=== PATIENT | male | born 1995 | race Asian ===

== ENCOUNTER 2018-02-04 12:31 | Emergency (ER) | payer OTHER, MEDICAID, SELFPAY ==
[2018-02-04 12:48] VITALS: PULSE 98; RESP 21; O2SAT 99
[2018-02-04] MEDS: ALBUTEROL/IPRATROPIUM 3 ML AMPUL INH ×2 (12:48→15:15)
--- NOTE | 2018-02-04 12:54 | ED.FEVER ---
HPI - Fever General Chief Complaint: Upper Respiratory Symptoms Stated Complaint: HIGH FEVER/ FLU LIKE SYMTOMS/ SOB Time Seen by Provider: 02/04/18 12:54 Source: patient Mode of arrival: ambulatory Limitations: no limitations History of Present Illness HPI Narrative: Patient is a 22-year-old male with a history of asthma who states that he only uses his albuterol inhaler maybe once a year. States that for the past 36-48 hours he has had a productive cough and subjective fevers and having to use his albuterol inhaler at home. He states that the albuterol does improve his symptoms but then they returned shortly afterwards. No recent travel. No chest pain. Related Data Home Medications Medication Instructions Recorded Confirmed albuterol sulfate [ProAir HFA] 1 puff INHALATION PRN PRN 02/04/18 02/04/18 Previous Rx's Medication Instructions Recorded albuterol sulfate 2.5 mg INHALATION Q4-6H PRN #75 ml 02/04/18 dexamethasone [Decadron] 12 mg PO .once #3 tab 02/04/18 Allergies Allergy/AdvReac Type Severity Reaction Status Date / Time No Known Drug Allergies Allergy Verified 02/04/18 14:08 Review of Systems Constitutional Reports chills and Reports fever(s) Cardiovascular Denies chest pain, Denies irregular heart rhythm, Denies palpitations and Reports dyspnea Respiratory Reports cough, Denies hemoptysis, Reports dyspnea and Reports wheezing Gastrointestinal Gastrointestinal: Denies abdominal pain, Denies diarrhea, Denies nausea and Denies vomiting Musculoskeletal Denies myalgias and Denies arthralgias Integumentary/Breasts Denies lesions and Denies rash Endocrine Denies palpitations Hematologic/Lymphatic Denies easy bleeding and Denies easy bruising Allergic/Immunologic Reports wheezing [facility] Medical History Asthma (Acute) Surgical History No pertinent past surgical history (Acute) Exam Initial Vital Signs Initial Vital Signs: Vital Signs Pulse Rate 98 H 02/04/18 12:48 Respiratory Rate 21 02/04/18 12:48 Pulse Oximetry 99 02/04/18 12:48 Const General: cooperative, healthy appearing, comfortable, well developed, well groomed and No acute distress Orientation: alert, awake and oriented x3 HENMT Head: normal to inspection and normocephalic Resp Effort & Inspection: not labored, no respiratory distress, tachypneic and no use of accessory muscles Auscultation: clear to auscultation bilaterally Other: My lung exam was performed after he received a nebulizer treatment here in the emergency department. He was reported by nursing staff and respiratory therapy that he had inspiratory and expiratory wheezing prior to the nebulizer treatment Cardio Rate: tachycardic Rhythm: regular rhythm Heart Sounds: no murmurs Pulses: radial pulses present Skin Lesions: no lesions Rashes: no rashes Neuro General: alert, awake and oriented x3 Extrem General: normal to inspection and capillary refill normal Psych Appearance: grossly normal and well kempt Course Orders Ordered: ED Orders 02/04/18 12:56 XR chest 1V Stat 02/04/18 13:20 Influenza A and B by PCR Rapid Stat Albuterol (Ventolin) 2.5 mg INH NOW PRN PRN Reason: Wheezing Last Admin: 02/04/18 13:00 Dose: 2.5 mg Admin: 02/04/18 12:59 Dose: 2.5 mg Discontinued Medications Albuterol/Ipratropium (Duoneb) 3 ml INH NOW ONE Stop: 02/04/18 12:47 Last Admin: 02/04/18 12:48 Dose: 3 ml Albuterol/Ipratropium (Duoneb) 3 ml INH NOW ONE Stop: 02/04/18 14:48 Last Admin: 02/04/18 15:15 Dose: 3 ml Dexamethasone (Decadron) 10 mg PO NOW ONE Stop: 02/04/18 13:49 Last Admin: 02/04/18 14:08 Dose: 10 mg Vital Signs - 8 hr 02/04/18 12:48 02/04/18 13:00 02/04/18 15:20 Temperature 99.9 F H Pulse Rate 98 H 98 H 110 H Respiratory Rate 21 21 16 Blood Pressure 144/84 H Pulse Oximetry 99 99 98 MDM - Fever Lab Data Attestation: I reviewed the patient's lab results. Lab Results 02/04/18 Range/Units 13:20 Influenza A & B (PCR) Negative (Negative) Imaging Data Chest x-ray: Radiologist's impression: [address] [address] XRay Report Signed Patient: Te Rodas [facility]#: [id number] : 1995Acct:[id number] Age/Sex: 22 / MDate of Service: 02/04/18 Loc: ED Accession Number: [id number] Procedure: XR chest 1V Ordering Provider: Abelino Whipple D.O. PROCEDURE: XR CHEST 1V INDICATIONS: Fever and cough TECHNIQUE: One view of the chest was acquired. COMPARISON: [facility], CHEST 1 VIEW, 11/20/2016, 17:38. [facility], , CHEST 2 VIEW, 08/23/2015, 20:26. FINDINGS: Surgical changes and devices: None. Lungs and pleura: No pleural effusions or pneumothorax. Lungs are clear. Mediastinum: Mediastinal contours appear normal. Heart size is normal. Bones and chest wall: No suspicious bony lesions. Overlying soft tissues appear unremarkable. IMPRESSION: Normal for age. Dictated by: Jacobo Lucio M.D. on 02/04/2018 at 13:22 Approved by: Jacobo Lucio M.D. on 02/04/2018 at 13:22 [facility] Narrative Medical decision making narrative: Chest x-ray shows no signs of pneumonia. Had improvement with albuterol neb here in the ER. Was given Decadron. Upon my re-evaluation his wheezing returned. He was given a 2nd nebulizer treatment. Patient states he does have a nebulizer at home. The albuterol that he has was just filled 2 days ago. Patient states he would like to have albuterol for his nebulizer at home. Will also send home with a 2nd dose of Decadron. Patient expressed understanding and agreement with plan. Discharge Plan Departure Patient Disposition: Home Clinical Impression: Asthma exacerbation Instructions: Asthma -- Adult Activity Restrictions/Additional Instructions: Take the Decadron/dexamethasone 36 hr after discharge from the emergency department as directed. Recommend that every 4 hr for the next 24 hr while you are awake you do a nebulizer treatment. If he find that you are needing her nebulizer sooner than every 4 hr over multiple instances return to the emergency department for further evaluation. Call your primary care doctor for a follow-up. Prescriptions: New albuterol sulfate 2.5 mg /3 mL (0.083 %) solution for nebulization 2.5 mg INHALATION Q4-6H PRN (Reason: shortness of breath or wheezing) Qty: 75 RF: 0 dexamethasone [Decadron] 4 mg tablet 12 mg PO .once Qty: 3 RF: 0 No Action albuterol sulfate [ProAir HFA] 90 mcg/actuation HFA aerosol inhaler 1 puff Inhalation PRN PRN (Reason: Shortness Of Breath) RF: 0
--- NOTE | 2018-02-04 12:56 | DI.RAD.S_ITS ---
PROCEDURE: XR CHEST 1V INDICATIONS: Fever and cough TECHNIQUE: One view of the chest was acquired. COMPARISON: [facility], CHEST 1 VIEW, 11/20/2016, 17:38. [facility], CHEST 2 VIEW, 08/23/2015, 20:26. FINDINGS: Surgical changes and devices: None. Lungs and pleura: No pleural effusions or pneumothorax. Lungs are clear. Mediastinum: Mediastinal contours appear normal. Heart size is normal. Bones and chest wall: No suspicious bony lesions. Overlying soft tissues appear unremarkable. IMPRESSION: Normal for age. Dictated by: Jacobo Lucio M.D. on 02/04/2018 at 13:22 Approved by: Jacobo Lucio M.D. on 02/04/2018 at 13:22
[2018-02-04] MEDS: ALBUTEROL 2.5 MG/3 ML NEB (ADULT) INH ×2 (12:59→13:00)
[2018-02-04 13:00] VITALS: BP 144/84; PULSE 98; PULSE 99; RESP 19; RESP 21; TEMP 37.7; O2SAT 99
[2018-02-04] MEDS: DEXAMETHASONE 10 MG/ML VIAL PO (14:08)
[2018-02-04 14:35] LABS: Influenza A and B by PCR Rapid Negative (Negative)
[2018-02-04 15:20] VITALS: PULSE 110; RESP 16; O2SAT 98
[2018-02-04 16:01] VITALS: BP 115/64; PULSE 110; RESP 20; TEMP 37.7; O2SAT 98
--- NOTE | 2018-02-08 10:52 | ED_ITS ---
HPI - Fever General Chief Complaint: Upper Respiratory Symptoms Stated Complaint: HIGH FEVER/ FLU LIKE SYMTOMS/ SOB Time Seen by Provider: 02/04/18 12:54 Source: patient Mode of arrival: ambulatory Limitations: no limitations History of Present Illness HPI Narrative: Patient is a 22-year-old male with a history of asthma who states that he only uses his albuterol inhaler maybe once a year. States that for the past 36-48 hours he has had a productive cough and subjective fevers and having to use his albuterol inhaler at home. He states that the albuterol does improve his symptoms but then they returned shortly afterwards. No recent travel. No chest pain. Related Data Home Medications Medication Instructions Recorded Confirmed albuterol sulfate [ProAir HFA] 1 puff INHALATION PRN PRN 02/04/18 02/04/18 Previous Rx's Medication Instructions Recorded albuterol sulfate 2.5 mg INHALATION Q4-6H PRN #75 ml 02/04/18 dexamethasone [Decadron] 12 mg PO .once #3 tab 02/04/18 Allergies Allergy/AdvReac Type Severity Reaction Status Date / Time No Known Drug Allergies Allergy Verified 02/04/18 14:08 Review of Systems Constitutional Reports chills and Reports fever(s) Cardiovascular Denies chest pain, Denies irregular heart rhythm, Denies palpitations and Reports dyspnea Respiratory Reports cough, Denies hemoptysis, Reports dyspnea and Reports wheezing Gastrointestinal Gastrointestinal: Denies abdominal pain, Denies diarrhea, Denies nausea and Denies vomiting Musculoskeletal Denies myalgias and Denies arthralgias Integumentary/Breasts Denies lesions and Denies rash Endocrine Denies palpitations Hematologic/Lymphatic Denies easy bleeding and Denies easy bruising Allergic/Immunologic Reports wheezing [facility] Medical History Asthma (Acute) Surgical History No pertinent past surgical history (Acute) Exam Initial Vital Signs Initial Vital Signs: Vital Signs Pulse Rate 98 H 02/04/18 12:48 Respiratory Rate 21 02/04/18 12:48 Pulse Oximetry 99 02/04/18 12:48 Const General: cooperative, healthy appearing, comfortable, well developed, well groomed and No acute distress Orientation: alert, awake and oriented x3 HENMT Head: normal to inspection and normocephalic Resp Effort & Inspection: not labored, no respiratory distress, tachypneic and no use of accessory muscles Auscultation: clear to auscultation bilaterally Other: My lung exam was performed after he received a nebulizer treatment here in the emergency department. He was reported by nursing staff and respiratory therapy that he had inspiratory and expiratory wheezing prior to the nebulizer treatment Cardio Rate: tachycardic Rhythm: regular rhythm Heart Sounds: no murmurs Pulses: radial pulses present Skin Lesions: no lesions Rashes: no rashes Neuro General: alert, awake and oriented x3 Extrem General: normal to inspection and capillary refill normal Psych Appearance: grossly normal and well kempt Course Orders Ordered: ED Orders 02/04/18 12:56 XR chest 1V Stat 02/04/18 13:20 Influenza A and B by PCR Rapid Stat Albuterol (Ventolin) 2.5 mg INH NOW PRN PRN Reason: Wheezing Last Admin: 02/04/18 13:00 Dose: 2.5 mg Admin: 02/04/18 12:59 Dose: 2.5 mg Discontinued Medications Albuterol/Ipratropium (Duoneb) 3 ml INH NOW ONE Stop: 02/04/18 12:47 Last Admin: 02/04/18 12:48 Dose: 3 ml Albuterol/Ipratropium (Duoneb) 3 ml INH NOW ONE Stop: 02/04/18 14:48 Last Admin: 02/04/18 15:15 Dose: 3 ml Dexamethasone (Decadron) 10 mg PO NOW ONE Stop: 02/04/18 13:49 Last Admin: 02/04/18 14:08 Dose: 10 mg Vital Signs - 8 hr 02/04/18 12:48 02/04/18 13:00 02/04/18 15:20 Temperature 99.9 F H Pulse Rate 98 H 98 H 110 H Respiratory Rate 21 21 16 Blood Pressure 144/84 H Pulse Oximetry 99 99 98 MDM - Fever Lab Data Attestation: I reviewed the patient's lab results. Lab Results 02/04/18 Range/Units 13:20 Influenza A & B (PCR) Negative (Negative) Imaging Data Chest x-ray: Radiologist's impression: [address] [address] XRay Report Signed Patient: Te Rodas [facility]#: [id number] : 1995Acct:[id number] Age/Sex: 22 / MDate of Service: 02/04/18 Loc: ED Accession Number: [id number] Procedure: XR chest 1V Ordering Provider: Abelino Whipple D.O. PROCEDURE: XR CHEST 1V INDICATIONS: Fever and cough TECHNIQUE: One view of the chest was acquired. COMPARISON: [facility], CHEST 1 VIEW, 11/20/2016, 17:38. [facility], , CHEST 2 VIEW, 08/23/2015, 20:26. FINDINGS: Surgical changes and devices: None. Lungs and pleura: No pleural effusions or pneumothorax. Lungs are clear. Mediastinum: Mediastinal contours appear normal. Heart size is normal. Bones and chest wall: No suspicious bony lesions. Overlying soft tissues appear unremarkable. IMPRESSION: Normal for age. Dictated by: Jacobo Lucio M.D. on 02/04/2018 at 13:22 Approved by: Jacobo Lucio M.D. on 02/04/2018 at 13:22 [facility] Narrative Medical decision making narrative: Chest x-ray shows no signs of pneumonia. Had improvement with albuterol neb here in the ER. Was given Decadron. Upon my re-evaluation his wheezing returned. He was given a 2nd nebulizer treatment. Patient states he does have a nebulizer at home. The albuterol that he has was just filled 2 days ago. Patient states he would like to have albuterol for his nebulizer at home. Will also send home with a 2nd dose of Decadron. Patient expressed understanding and agreement with plan. Discharge Plan Departure Patient Disposition: Home Clinical Impression: Asthma exacerbation Instructions: Asthma -- Adult Activity Restrictions/Additional Instructions: Take the Decadron/dexamethasone 36 hr after discharge from the emergency department as directed. Recommend that every 4 hr for the next 24 hr while you are awake you do a nebulizer treatment. If he find that you are needing her nebulizer sooner than every 4 hr over multiple instances return to the emergency department for further evaluation. Call your primary care doctor for a follow-up. Prescriptions: New albuterol sulfate 2.5 mg /3 mL (0.083 %) solution for nebulization 2.5 mg INHALATION Q4-6H PRN (Reason: shortness of breath or wheezing) Qty: 75 RF: 0 dexamethasone [Decadron] 4 mg tablet 12 mg PO .once Qty: 3 RF: 0 No Action albuterol sulfate [ProAir HFA] 90 mcg/actuation HFA aerosol inhaler 1 puff Inhalation PRN PRN (Reason: Shortness Of Breath) RF: 0
== END 2018-02-04 16:01 | disposition home or self-care (01) ==
PROVIDERS: Emergency Provider Emergency Medicine; Family Provider Otolaryngology; PCP Otolaryngology
DX: J45.909 Unspecified asthma, uncomplicated (principal)
CPT/HCPCS: 71045; 87400; 94150; 94640; 99282; 99284; J1100; J7613

== ENCOUNTER 2018-09-13 20:28 | Emergency (ER) | payer OTHER, MEDICAID, SELFPAY ==
--- NOTE | 2018-09-13 21:06 | ED.ARRPALP ---
HPI - Arrhythmia/Palpitations General Chief Complaint: Arrhythmia/Palpitations Stated Complaint: UNSTABLE HEART RATE Time Seen by Provider: 09/13/18 20:44 Related Data Home Medications Medication Instructions Recorded Confirmed albuterol sulfate [ProAir HFA] 1 puff INHALATION PRN PRN 02/04/18 02/04/18 Previous Rx's Medication Instructions Recorded albuterol sulfate 2.5 mg INHALATION Q4-6H PRN #75 ml 02/04/18 dexamethasone [Decadron] 12 mg PO .once #3 tab 02/04/18 Allergies Allergy/AdvReac Type Severity Reaction Status Date / Time No Known Drug Allergies Allergy Verified 02/04/18 14:08 Exam Initial Vital Signs Initial Vital Signs: Vital Signs Temperature 97.7 F 09/13/18 21:22 Pulse Rate 76 09/13/18 21:22 Respiratory Rate 18 09/13/18 21:22 Blood Pressure 136/78 09/13/18 21:22 Pulse Oximetry 99 09/13/18 21:22 Course Orders Ordered: ED Orders 09/13/18 20:41 EKG-12 Lead Stat Discontinued Medications Ibuprofen (Advil) 800 mg PO NOW ONE Stop: 09/13/18 21:23 Last Admin: 09/13/18 21:51 Dose: 800 mg Vital Signs - 8 hr 09/13/18 21:22 Temperature 97.7 F Pulse Rate 76 Respiratory Rate 18 Blood Pressure [Right Arm] 136/78 Pulse Oximetry 99 Discharge Plan Departure Prescriptions: No Action albuterol sulfate [ProAir HFA] 90 mcg/actuation HFA aerosol inhaler 1 puff Inhalation PRN PRN (Reason: Shortness Of Breath) RF: 0 albuterol sulfate 2.5 mg /3 mL (0.083 %) solution for nebulization 2.5 mg INHALATION Q4-6H PRN (Reason: shortness of breath or wheezing) Qty: 75 RF: 0 dexamethasone [Decadron] 4 mg tablet 12 mg PO .once Qty: 3 RF: 0
[2018-09-13 21:22] VITALS: BP 136/78; PULSE 76; RESP 18; TEMP 36.5; O2SAT 99
[2018-09-13] MEDS: IBUPROFEN 400 MG TABLET 800 MG PO (21:51)
--- NOTE | 2018-09-13 22:03 | ED.ARRPALP ---
HPI - Arrhythmia/Palpitations General Chief Complaint: Arrhythmia/Palpitations Stated Complaint: UNSTABLE HEART RATE Time Seen by Provider: 09/13/18 20:44 Source: patient Mode of arrival: ambulatory Limitations: no limitations History of Present Illness HPI narrative: The patient experiences anxiety a regular basis. At the encouragement of a work partner he took a compound today about 3:00 p.m., a compound called Shala , explained to him as a natural herbal the treatment for anxiety. the come down his [place] to [place], the leavess contains psychogenic producing compounds. Other side effects include palpitations, muscle aches, insomnia, emotional changes, and jerking movements. He took the compound, mixed in water. For the 1st 2 hours he did feel a relieved anxiety. anxiety return. He developed palpitations and tachycardia. His heart rate was up to 105. He had no dyspnea. He had no abdominal pain or nausea. He has a headache. He developed spasm in his anterior neck that is relieved now. He is having no fever chills. He has no confusion. He has no dizziness. Related Data Home Medications Medication Instructions Recorded Confirmed albuterol sulfate [ProAir HFA] 1 puff INHALATION PRN PRN 02/04/18 02/04/18 Previous Rx's Medication Instructions Recorded albuterol sulfate 2.5 mg INHALATION Q4-6H PRN #75 ml 02/04/18 dexamethasone [Decadron] 12 mg PO .once #3 tab 02/04/18 Allergies Allergy/AdvReac Type Severity Reaction Status Date / Time No Known Drug Allergies Allergy Verified 02/04/18 14:08 Review of Systems Review of Systems ROS Unobtainable: All systems reviewed & are unremarkable except as noted in HPI and below Constitutional Denies chills, Denies fever(s), Reports headache(s), Denies lethargy and Denies weakness Eyes Denies change in vision, Denies eye discharge, Denies irritation and Denies loss of vision ENT Ears, Nose, Mouth, and Throat: Reports headache(s), Denies mouth pain and Denies nasal congestion Comments: Neck tightness. Cardiovascular Denies chest pain, Denies irregular heart rhythm, Denies lightheadedness, Reports palpitations, Denies dyspnea, Denies dyspnea on exertion and Denies orthopnea Respiratory Denies cough, Denies dyspnea, Denies dyspnea on exertion and Denies wheezing Gastrointestinal Gastrointestinal: Denies abdominal pain, Denies change in bowel habits, Denies diarrhea, Denies nausea and Denies vomiting Musculoskeletal Denies myalgias and Denies muscle cramps Integumentary/Breasts Denies pruritus, Denies erythema, Denies rash and Denies wounds Neurologic Reports headache(s), Denies loss of vision and Denies weakness Endocrine Reports palpitations Allergic/Immunologic Denies wheezing [facility] Medical History (Updated 09/13/18 @ 22:16 by Song Wang MD) Anxiety (Acute) Asthma (Acute) Surgical History No pertinent past surgical history (Acute) Exam Initial Vital Signs Initial Vital Signs: Vital Signs Temperature 97.7 F 09/13/18 21:22 Pulse Rate 76 09/13/18 21:22 Respiratory Rate 18 09/13/18 21:22 Blood Pressure 136/78 09/13/18 21:22 Pulse Oximetry 99 09/13/18 21:22 Const General: cooperative, well developed and anxious Nutritional Appearance: well nourished Orientation: alert, awake, oriented x3 and not confused [facility] Head: normocephalic and atraumatic Nose: external nose normal Mouth: oral mucosae normal and moist mucous membranes Throat: tonsils normal and uvula midline Eyes General: appearance normal, both eyes and all related structures Eyelids: eyelids normal Conjunctivae: conjunctivae normal Sclera: sclerae normal Pupils: PERRL EOM: EOM intact bilaterally Resp Effort & Inspection: normal respiratory effort, able to speak in complete sentences, no respiratory distress and no use of accessory muscles Auscultation: clear to auscultation bilaterally, no rales, no rhonchi and no wheezes Cardio Rate: regular rate Rhythm: regular rhythm Heart Sounds: no click, no gallops, no murmurs and no rubs Pulses: normal peripheral pulses GI Inspection: non-distended Palpation: soft, no hepatosplenomegaly, No guarding, No pulsatile mass and No tender Auscultation: normal bowel sounds Skin General: no rashes or lesions noted, No jaundice and No petechiae Neuro General: alert, oriented x3, gait normal and no focal motor deficits Speech: speech normal Extrem General: full ROM, no clubbing, cyanosis or edema, no pedal edema and no calf tenderness Course Orders Ordered: ED Orders 09/13/18 20:41 EKG-12 Lead Stat Discontinued Medications Ibuprofen (Advil) 800 mg PO NOW ONE Stop: 09/13/18 21:23 Last Admin: 09/13/18 21:51 Dose: 800 mg Vital Signs - 8 hr 09/13/18 21:22 Temperature 97.7 F Pulse Rate 76 Respiratory Rate 18 Blood Pressure [Right Arm] 136/78 Pulse Oximetry 99 MDM - Arrhythmia/Palpitations ECG Data Attestation: I personally reviewed and interpreted this ECG as follows: (Normal sinus rhythm rate 81 beats per minute. normal intervals. No ectopy. No acute ST T wave changes. Normal study.) MDM Narrative Medical decision making narrative: The patient had a headache upon arrival. He was given ibuprofen, with some help. He is improving and is ready to depart. Discharge Plan Departure Patient Disposition: Home Clinical Impression: Drug abuse, Anxiety Instructions: DI for Anxiety -- Adult Activity Restrictions/Additional Instructions: The substance used has potential significant side effects. We will give you information from the compound that we obtained from the Internet. I would advise avoiding this compound. Regarding anxiety, I would recommend initial follow up with local doctor. You need to make an appointment. I would also recommend seeking out a local therapist for management of anxiety. Both approaches have potential benefit. Return to the ER as needed. Prescriptions: No Action albuterol sulfate [ProAir HFA] 90 mcg/actuation HFA aerosol inhaler 1 puff Inhalation PRN PRN (Reason: Shortness Of Breath) RF: 0 albuterol sulfate 2.5 mg /3 mL (0.083 %) solution for nebulization 2.5 mg INHALATION Q4-6H PRN (Reason: shortness of breath or wheezing) Qty: 75 RF: 0 dexamethasone [Decadron] 4 mg tablet 12 mg PO .once Qty: 3 RF: 0 Referrals: Long Ovalles MD [Primary Care Provider] -
[2018-09-13 22:35] VITALS: BP 126/72; PULSE 72; RESP 16; O2SAT 100
== END 2018-09-13 22:15 | disposition home or self-care (01) ==
PROVIDERS: Emergency Provider Emergency Medicine; Family Provider Otolaryngology; PCP Otolaryngology
DX: F19.10 Other psychoactive substance abuse, uncomplicated (principal); F41.9 Anxiety disorder, unspecified
CPT/HCPCS: 93005; 93010; 93041; 99283